=== PATIENT | female | born 1945 | race Caucasian/White ===

== ENCOUNTER 2019-02-05 16:13 | Emergency (ER) | payer OTHER ==
[~2019-02-05] VITALS: Ht 160 cm; Wt 72.6 kg
[2019-02-05] MEDS ORDERED: COZAAR25 MG (16:20)
[2019-02-05] MEDS ORDERED: AMLODIPINE-OLM1 EAC2 (16:20)
== END 2019-02-05 18:58 | disposition home or self-care (01) ==
LOC: ER 16:13
DX: K80.20 Calculus of gallbladder without cholecystitis without obstruction (principal)